=== PATIENT | male | born 1975 | race Caucasian/White ===

== ENCOUNTER 2021-06-25 09:24 | Day surgery (SDC) | payer OTHER ==
[~2021-06-25 09:24] MED LIST: Acetaminophen 1,000 MG in Premix Bag 1 BAG IV ONE; Bupivacaine 0.5% 30 ML SDV ONE; Dexamethasone 4 MG/ML 5 ML MDV ONE; Dexmedetomidine 200 MCG/2 ML SDV ONE; Glycopyrrolate 0.2 MG/ML SDV ONE; Ketamine 500 mg/10 ML MDV ONE; Ketorolac 30 MG/ML SDV ONE; Lactated Ringers 1,000 ML IV SCH; Lidocaine 2% 5 ML SDV ONE; Octyl 2-Cyanoacrylate 1 Tube ONE; Ondansetron 4 MG/2 ML SDV ONE; Pregabalin 75 MG Cap PO SCH; Propofol 200 MG/20 ML SDV ONE; Sodium Chloride 0.9% 20 ML ONE; ceFAZolin 2 GM in Premix Bag 1 BAG IV ONE; fentaNYL 100 MCG/2 ML SDV ONE
--- NOTE | 2021-06-25 10:08 | PCM.PREANE ---
Preanesthetic Assessment - Procedure Proposed Procedure: Umbilical Hernia repair - Anesthesia/Transfusion/Family Hx Anesthesia History: Prior Anesthesia Without Reaction Transfusion History: No Prior Transfusion(s) - Review of Systems General: No Symptoms Pulmonary: No Symptoms Cardiovascular: No Symptoms Gastrointestinal: No Symptoms Neurological: No Symptoms Other: Reports: None - Physical Assessment NPO Status Date: 06/24/21 NPO Status Time: 21:00 Vital Signs: Last Vital Signs Temp 96.3 F L 06/25/21 09:38 Pulse 66 06/25/21 09:38 Resp 15 06/25/21 09:38 BP 157/94 H 06/25/21 09:38 Pulse Ox 97 06/25/21 09:38 Height: 5 ft 8 in Weight: 100.698 kg (obesity) ASA Class: 2 Mental Status: Alert & Oriented x3 Airway Class: Mallampati = 2 Dentition: Reports: Dentures Thyro-Mental Finger Breadths: 3 Mouth Opening Finger Breadths: 3 ROM/Head Extension: Limited/Partial Lungs: Clear to Auscultation, Normal Respiratory Effort Cardiovascular: Regular Rate, Regular Rhythm - Allergies Allergies/Adverse Reactions: Allergies Allergy/AdvReac Type Severity Reaction Status Date / Time No Known Allergies Allergy Verified 06/19/21 07:20 - Acknowledgements Anesthesia Type Planned: General Anesthesia Pt an Appropriate Candidate for the Planned Anesthesia: Yes Alternatives and Risks of Anesthesia Discussed w Pt/Guardian: Yes Pt/Guardian Understands and Agrees with Anesthesia Plan: Yes PreAnesthesia Questionnaire HEENT History: Reports: Other (See Below) Other HEENT History: reading glasses, top and bottom dentures Cardiovascular History: Reports: None Respiratory History: Reports: None Gastrointestinal History: Reports: None Genitourinary History: Reports: None Musculoskeletal History: Reports: None Neurological History: Reports: None Psychiatric History: Reports: None Endocrine/Metabolic History: Reports: Obesity/BMI 30+ Hematologic History: Reports: None Immunologic History: Reports: None Oncologic (Cancer) History: Reports: None Dermatologic History: Reports: None - Past Surgical History Head Surgeries/Procedures: Reports: None HEENT Surgical History: Reports: Other (See Below) Other HEENT Surgeries/Procedures: throat surgery as a child (unsure what kind) Cardiovascular Surgical History: Reports: None Respiratory Surgical History: Reports: None GI Surgical History: Reports: None Male Surgical History: Reports: None Endocrine Surgical History: Reports: None Neurological Surgical History: Reports: None Musculoskeletal Surgical History: Reports: None Oncologic Surgical History: Reports: None Dermatological Surgical History: Reports: None - SUBSTANCE USE Tobacco Use Within Last Twelve Months: Smokeless Tobacco - HOME MEDS Home Medications: Home Meds . [No Known Home Meds] 06/19/21 [History] - CURRENT (IN HOUSE) MEDS Current Meds: Current Medications Lactated Ringer's (Ringers, Lactated) 1,000 mls @ 125 mls/hr IV ASDIRECTED ADRY Pregabalin (Pregabalin 75 Mg Cap) 150 mg PO DAILY ADRY Discontinued Medications Bupivacaine HCl (Bupivacaine 0.5% 30 Ml Sdv) Confirm Administered Dose 30 ml .ROUTE .STK-MED ONE Stop: 06/25/21 08:24 Dexamethasone (Dexamethasone 4 Mg/Ml 5 Ml Mdv) Confirm Administered Dose 20 mg .ROUTE .STK-MED ONE Stop: 06/25/21 08:35 Dexmedetomidine HCl (Dexmedetomidine 200 Mcg/2 Ml Sdv) Confirm Administered Dose 200 mcg .ROUTE .STK-MED ONE Stop: 06/25/21 08:35 Fentanyl (Fentanyl 100 Mcg/2 Ml Sdv) Confirm Administered Dose 100 mcg .ROUTE .STK-MED ONE Stop: 06/25/21 08:46 Glycopyrrolate (Glycopyrrolate 0.2 Mg/Ml Sdv) Confirm Administered Dose 0.2 mg .ROUTE .STK-MED ONE Stop: 06/25/21 08:35 Cefazolin Sodium/Dextrose 2 gm (/ Premix) 50 mls @ 100 mls/hr IV ONETIME ONE Stop: 06/23/21 10:24 Acetaminophen 1,000 mg/ Premix 100 mls @ 400 mls/hr IV NOW ONE Stop: 06/23/21 10:09 Acetaminophen (Ofirmev 1000 Mg/100 Ml) Confirm Administered Dose 100 mls @ as directed .ROUTE .STK-MED ONE Stop: 06/25/21 08:33 Sodium Chloride (Normal Saline) Confirm Administered Dose 20 mls @ as directed .ROUTE .STK-MED ONE Stop: 06/25/21 08:36 Ketamine HCl (Ketamine 500 Mg/10 Ml Mdv) Confirm Administered Dose 500 mg .ROUTE .STK-MED ONE Stop: 06/25/21 08:39 Ketorolac Tromethamine (Ketorolac 30 Mg/Ml Sdv) Confirm Administered Dose 30 mg .ROUTE .STK-MED ONE Stop: 06/25/21 08:35 Lidocaine (Lidocaine 2% 5 Ml Sdv) Confirm Administered Dose 5 ml .ROUTE .STK-MED ONE Stop: 06/25/21 08:35 Octyl Cyanoacrylate (Octyl 2-Cyanoacrylate 1 Tube) Confirm Administered Dose 1 applic .ROUTE .[employer]MED ONE Stop: 06/25/21 08:36 Ondansetron HCl (Ondansetron 4 Mg/2 Ml Sdv) Confirm Administered Dose 4 mg .ROUTE .[employer]-MED ONE Stop: 06/25/21 08:35 Propofol (Propofol 200 Mg/20 Ml Sdv) Confirm Administered Dose 200 mg .ROUTE .[employer]-MED ONE Stop: 06/25/21 08:39
[2021-06-25] MEDS ORDERED: ceFAZolin 1 GM Vial ONE (10:24)
--- NOTE | 2021-06-25 11:22 | PCM.OPNOTE ---
- General Post-Op/Procedure Note Date of Surgery/Procedure: 06/25/21 Operative Procedure(s): Repair of umbilical hernia without mesh Findings: small umbilical hernia dictation number [id number] Pre Op Diagnosis: incarcerated umbilical hernia Post-Op Diagnosis: incarcerated umbilical hernia Primary Surgeon: Sukumar Brownlee Pathology: none EBL in mLs: 10 Complications: None Condition: Good
--- NOTE | 2021-06-25 11:27 | PCM.POSTAN ---
POST ANESTHESIA ASSESSMENT - MENTAL STATUS Mental Status: Somnolent - VITAL SIGNS Vital Signs: Last Vital Signs Temp 96.3 F L 06/25/21 09:38 Pulse 66 06/25/21 09:38 Resp 15 06/25/21 09:38 BP 157/94 H 06/25/21 09:38 Pulse Ox 97 06/25/21 09:38 - RESPIRATORY Respiratory Status: Respiratory Rate WNL, Airway Patent, O2 Saturation Stable - CARDIOVASCULAR CV Status: Pulse Rate WNL, Blood Pressure Stable - GASTROINTESTINAL GI Status: No Symptoms - PAIN Free Text/Narrative:: Resting comfortably - POST OP HYDRATION Hydration Status: Adequate & Stable
--- NOTE | 2021-06-25 11:34 | PCM48HPAN ---
Post Anesthesia Note - EVALUATION WITHIN 48HRS OF ANESTHETIC Vital Signs in Normal Range: Yes Patient Participated in Evaluation: Yes Respiratory Function Stable: Yes Airway Patent: Yes Cardiovascular Function Stable: Yes Hydration Status Stable: Yes Pain Control Satisfactory: Yes Nausea and Vomiting Control Satisfactory: Yes Mental Status Recovered: Yes Vital Signs: Last Vital Signs Temp 98.1 F 06/25/21 11:21 Pulse 67 06/25/21 11:27 Resp 16 06/25/21 11:27 BP 103/73 06/25/21 11:27 Pulse Ox 96 06/25/21 11:27 - COMMENTS/OBSERVATIONS Free Text/Narrative:: Pt doing well post-op. VSS. No apparent anesthetic complications. Dr. Kevin Rivera
--- NOTE | 2021-06-25 14:51 | OR ---
SURGEON: ANETA COVINGTON MD DATE OF PROCEDURE: 06/25/2021 PREOPERATIVE DIAGNOSIS: Incarcerated umbilical hernia. POSTOPERATIVE DIAGNOSIS: Incarcerated umbilical hernia. PROCEDURE PERFORMED: Repair of umbilical hernia without mesh. PRIMARY SURGEON: Aneta Covington MD ANESTHESIA: General. ESTIMATED BLOOD LOSS: 10 mL. SPECIMENS: None. REASON FOR PROCEDURE: The patient is a pleasant 45-year-old gentleman, who has had umbilical hernia for about a year. It is getting larger and causing discomfort once in a while. He had 1 episode of sharp pain. Denies any obstructive symptoms. I did go over with the patient risks, goals, and alternatives of the procedure. Risks include, but not limited to bleeding, recurrence, infection, mesh infection, chronic pain, injury to underlying structures such as bowel, seroma formation, hematoma formation. Also went over the defect feels fairly small and we may or may not need to use mesh on the repair. The patient understands and wished to proceed. OPERATION NARRATIVE: The patient was brought to the OR. He was prepped and draped in usual sterile fashion. SCDs were placed. Preoperative antibiotics given. Anesthesia was provided by the anesthesia team. After time-out was performed, an infraumbilical incision was made. This was made down to the fascia. He did have his hernia sac, it was carefully dissected out from the surrounding tissue and the umbilical stalk and freed up from the umbilical stalk. Did clear up the fascia around the hernia defect. The hernia appeared to be fat containing. With some gentle pressure, I was able to completely reduce the hernia and hernia sac. Now, the hernia defect is fairly small, felt to be just over 0.5 cm in diameter. Because of its small size, we will not use mesh, which was closed with 0 Ethibond [id number]. The fascia nice and closed the defect with good fascial bites. Now, the area was irrigated and suctioned. There was good hemostasis. Now, the umbilical stalk was brought back down to the fascia and attached with 3-0 PDS. More local was used. Now, the skin was closed in 2 layers with 4-0 Monocryl and Dermabond. At the end of the case, sponge and needle counts were correct, and the patient was transferred to recovery room in stable condition. RAEGAN / DEAN /[id number]
== END 2021-06-25 13:00 | disposition home or self-care (01) ==
LOC: MW.SDS 09:24
PROVIDERS: ATTEND Surgery
DX: K42.0 Umbilical hernia with obstruction, without gangrene (principal)
CPT/HCPCS: 49587; A9270; J0131; J0690; J1100; J1885; J2405; J2704; J3010; J3490; J7120; 00750

== ENCOUNTER 2023-11-10 10:29 | Day surgery (SDC) | payer BC ==
[~2023-11-10 10:29] MED LIST changes: -Acetaminophen 1,000 MG in Premix Bag 1 BAG IV ONE; -Bupivacaine 0.5% 30 ML SDV ONE; -Dexamethasone 4 MG/ML 5 ML MDV ONE; -Dexmedetomidine 200 MCG/2 ML SDV ONE; -Glycopyrrolate 0.2 MG/ML SDV ONE; -Ketamine 500 mg/10 ML MDV ONE; -Ketorolac 30 MG/ML SDV ONE; -Lidocaine 2% 5 ML SDV ONE; -Octyl 2-Cyanoacrylate 1 Tube ONE; -Ondansetron 4 MG/2 ML SDV ONE; -Pregabalin 75 MG Cap PO SCH; -Propofol 200 MG/20 ML SDV ONE; -Sodium Chloride 0.9% 20 ML ONE; -ceFAZolin 2 GM in Premix Bag 1 BAG IV ONE; -fentaNYL 100 MCG/2 ML SDV ONE
[2023-11-10] MEDS ORDERED: Water For Injection, Sterile 20 ML ONE (12:31)
[2023-11-10] MEDS ORDERED: propofoL 50 ML ONE (12:31)
[2023-11-10] MEDS ORDERED: dexmedeTOMIDine HCl 200 MCG/2 ML SDV ONE (12:31)
== END 2023-11-10 14:00 | disposition home or self-care (01) ==
LOC: MW.SDS 10:29
PROVIDERS: ATTEND Surgery
DX: D12.6 Benign neoplasm of colon, unspecified (principal); K29.50 Unspecified chronic gastritis without bleeding; K20.90 Esophagitis, unspecified without bleeding; I51.89 Other ill-defined heart diseases; K57.30 Diverticulosis of large intestine without perforation or abscess without bleeding; R19.5 Other fecal abnormalities; M25.562 Pain in left knee; R10.9 Unspecified abdominal pain; Z86.19 Personal history of other infectious and parasitic diseases
CPT/HCPCS: 43239; 45380; 45385; J2704; J7120; 00813; J3490